=== PATIENT | female | born 1945 | race Caucasian/White ===

== ENCOUNTER 2016-09-30 14:51 | Inpatient (IN) | payer OTHER ==
[~2016-09-30] VITALS: Ht 160 cm; Wt 79.0 kg
[2016-09-30 15:56] LABS: AHDL CHOLESTEROL 33 mg/dL (>40); ALKALINE PHOSPHATASE 85 U/L (50-136); ALT/SGPT 29 U/L (3.5-33.9); AST/SGOT 33 U/L (7.04-26.96); BILIRUBIN,TOTAL 0.59 mg/dL (0.0-1.0); BLOOD UREA NITROGEN 12 mg/dL (7-18); CALCIUM 8.8 mg/dL (8.7-10.7); CARBON DIOXIDE 26 mmol/L (21-32); CHOLESTEROL 82 mg/dL (0-200); CREATININE 0.7 mg/dL (0.6-1.3); GLUCOSE,RANDOM 118 mg/dL (70-99); LDL CHOLESTEROL 20 mg/dL (0-99); POTASSIUM 3.8 mmol/L (3.5-5.1); SODIUM 144 mmol/L (136-145); TOTAL PROTEIN 5.5 gm/dL (6.4-8.2); TRIGLYCERIDES 142 mg/dL (30-200)
[2016-10-01 06:17] LABS: URINE BILIRUBIN NEGATIVE (NEGATIVE); URINE BLOOD NEGATIVE (NEGATIVE); URINE GLUCOSE (UA) NORMAL (NORMAL); URINE KETONE NEGATIVE (NEGATIVE); URINE LEUKOCYTE ESTERASE TRACE (NEGATIVE); URINE NITRATE NEGATIVE (NEGATIVE); URINE PROTEIN NEGATIVE (NEGATIVE); UROBILINOGEN NORMAL mg/dL (<1.0)
[2016-10-01 06:18] LABS: URINE WBC 0-5 /[HPF] (0-5)
[2016-10-01 06:19] LABS: HEMATOCRIT 34.4 % (34-45); HEMOGLOBIN 10.6 g/dL (11.2-15.7); MEAN CORPUSCULAR HEMOGLOBIN 27.9 pg (27.0-33.0); MEAN CORPUSCULAR HGB CONC 30.8 g/dL (32.0-36.0); MEAN CORPUSCULAR VOLUME 90.5 fL (79-95); MEAN PLATELET VOLUME 10.4 fl (7.5-11.5); RED BLOOD COUNT 3.8 x10_6/uL (3.9-5.2); RED CELL DISTRIBUTION WIDTH 15.3 % (11.7-14.4); WHITE BLOOD COUNT 7.2 x10_3/uL (4.0-10.0)
[2016-10-01 06:32] LABS: BLOOD UREA NITROGEN 15 mg/dL (7-18); CALCIUM 8.5 mg/dL (8.7-10.7); CARBON DIOXIDE 29 mmol/L (21-32); CREATININE 0.8 mg/dL (0.6-1.3); GLUCOSE,RANDOM 136 mg/dL (70-99); POTASSIUM 3.8 mmol/L (3.5-5.1); SODIUM 141 mmol/L (136-145)
[2016-10-03 06:59] LABS: HEMATOCRIT 34.8 % (34-45); HEMOGLOBIN 10.6 g/dL (11.2-15.7); MEAN CORPUSCULAR HGB CONC 30.5 g/dL (32.0-36.0); MEAN CORPUSCULAR VOLUME 91.8 fL (79-95); RED BLOOD COUNT 3.79 x10_6/uL (3.9-5.2); RED CELL DISTRIBUTION WIDTH 15.9 % (11.7-14.4); WHITE BLOOD COUNT 6.9 x10_3/uL (4.0-10.0)
[2016-10-03 07:09] LABS: CALCIUM 8.5 mg/dL (8.7-10.7); CARBON DIOXIDE 26 mmol/L (21-32); CREATININE 0.9 mg/dL (0.6-1.3); GLUCOSE,RANDOM 160 mg/dL (70-99); POTASSIUM 4.5 mmol/L (3.5-5.1); SODIUM 141 mmol/L (136-145)
[2016-10-03 07:13] LABS: BLOOD UREA NITROGEN 19 mg/dL (7-18)
[2016-10-06 07:03] LABS: HEMATOCRIT 35.7 % (34-45); HEMOGLOBIN 10.7 g/dL (11.2-15.7); MEAN CORPUSCULAR HEMOGLOBIN 27.5 pg (27.0-33.0); MEAN CORPUSCULAR VOLUME 91.8 fL (79-95); MEAN PLATELET VOLUME 11.1 fl (7.5-11.5); RED BLOOD COUNT 3.89 x10_6/uL (3.9-5.2); WHITE BLOOD COUNT 4.6 x10_3/uL (4.0-10.0)
[2016-10-06 07:28] LABS: BLOOD UREA NITROGEN 18 mg/dL (7-18); CALCIUM 8.8 mg/dL (8.7-10.7); CARBON DIOXIDE 27 mmol/L (21-32); CREATININE 0.9 mg/dL (0.6-1.3); GLUCOSE,RANDOM 117 mg/dL (70-99); POTASSIUM 4.5 mmol/L (3.5-5.1); SODIUM 141 mmol/L (136-145)
[2016-10-10 06:47] LABS: HEMATOCRIT 36.1 % (34-45); HEMOGLOBIN 11.2 g/dL (11.2-15.7); MEAN CORPUSCULAR HEMOGLOBIN 28.2 pg (27.0-33.0); MEAN CORPUSCULAR VOLUME 90.9 fL (79-95); RED BLOOD COUNT 3.97 x10_6/uL (3.9-5.2); RED CELL DISTRIBUTION WIDTH 16.3 % (11.7-14.4); WHITE BLOOD COUNT 4.5 x10_3/uL (4.0-10.0)
[2016-10-10 07:10] LABS: CREATININE 1.3 mg/dL (0.6-1.3); POTASSIUM 5.2 mmol/L (3.5-5.1)
[2016-10-13 07:16] LABS: HEMATOCRIT 37.1 % (34-45); HEMOGLOBIN 11.5 g/dL (11.2-15.7); MEAN CORPUSCULAR VOLUME 90.3 fL (79-95); MEAN PLATELET VOLUME 10.9 fl (7.5-11.5); RED BLOOD COUNT 4.11 x10_6/uL (3.9-5.2); RED CELL DISTRIBUTION WIDTH 16.2 % (11.7-14.4); WHITE BLOOD COUNT 3.4 x10_3/uL (4.0-10.0)
[2016-10-13 07:41] LABS: BLOOD UREA NITROGEN 17 mg/dL (7-18); CALCIUM 9.3 mg/dL (8.7-10.7); CARBON DIOXIDE 27 mmol/L (21-32); CREATININE 0.8 mg/dL (0.6-1.3); GLUCOSE,RANDOM 139 mg/dL (70-99); POTASSIUM 4.3 mmol/L (3.5-5.1); SODIUM 139 mmol/L (136-145)
[2016-10-17 06:37] LABS: HEMOGLOBIN 11.1 g/dL (11.2-15.7); MEAN CORPUSCULAR HEMOGLOBIN 28.3 pg (27.0-33.0); MEAN CORPUSCULAR HGB CONC 31.7 g/dL (32.0-36.0); MEAN CORPUSCULAR VOLUME 89.3 fL (79-95); MEAN PLATELET VOLUME 10.4 fl (7.5-11.5); RED BLOOD COUNT 3.92 x10_6/uL (3.9-5.2); RED CELL DISTRIBUTION WIDTH 15.8 % (11.7-14.4); WHITE BLOOD COUNT 3.2 x10_3/uL (4.0-10.0)
[2016-10-17 06:45] LABS: BLOOD UREA NITROGEN 16 mg/dL (7-18); CALCIUM 8.8 mg/dL (8.7-10.7); CARBON DIOXIDE 26 mmol/L (21-32); CREATININE 0.8 mg/dL (0.6-1.3); GLUCOSE,RANDOM 135 mg/dL (70-99); POTASSIUM 4.1 mmol/L (3.5-5.1); SODIUM 139 mmol/L (136-145)
== END 2016-10-17 14:55 | disposition home health service (06) | DRG 559 ==
LOC: SWING 14:51
PROVIDERS: ADMIT Family Medicine
DX: Z47.1 Aftercare following joint replacement surgery (principal); J18.0 Bronchopneumonia, unspecified organism; Z96.651 Presence of right artificial knee joint; I10 Essential (primary) hypertension; M25.561 Pain in right knee; Z83.3 Family history of diabetes mellitus; Z82.49 Family history of ischemic heart disease and other diseases of the circulatory system; Z80.9 Family history of malignant neoplasm, unspecified; Z51.89 Encounter for other specified aftercare; M62.50 Muscle wasting and atrophy, not elsewhere classified, unspecified site; R53.81 Other malaise; E78.5 Hyperlipidemia, unspecified; K21.9 Gastro-esophageal reflux disease without esophagitis; J44.9 Chronic obstructive pulmonary disease, unspecified; E11.9 Type 2 diabetes mellitus without complications; Z79.899 Other long term (current) drug therapy; Z79.82 Long term (current) use of aspirin; Z79.1 Long term (current) use of non-steroidal anti-inflammatories (NSAID); Z79.84 Long term (current) use of oral hypoglycemic drugs
CPT/HCPCS: 36415; 80048; 80053; 80061; 81001; 82962; 83036; 87070; 93041; 93971; 94640; 94664; 97110; 97116; 97530; 97535; 99070